=== PATIENT | male | born 2000 | race Caucasian/White ===

== ENCOUNTER 2021-09-22 11:21 | Emergency (ER) | payer OTHER ==
[2021-09-22] MEDS: Morphine 2 MG/ML SYRINGE ONE (12:33)
[2021-09-22] MEDS: Morphine 2 MG/ML SYRINGE IVPUSH ONE (12:35)
== END 2021-09-22 16:20 | disposition home or self-care (01) ==
LOC: LB.ED 11:21
DX: S62.643B Nondisplaced fracture of proximal phalanx of left middle finger, initial encounter for open fracture (principal); W27.0XXA Contact with workbench tool, initial encounter; Y99.0 Civilian activity done for income or pay
CPT/HCPCS: 12004; 73130; 96374; 99283; J2270